=== PATIENT | female | born 1935 | race Caucasian/White ===

== ENCOUNTER 2019-08-24 15:10 | Outpatient (CLI) | payer MEDICARE, OTHER ==
[2019-08-24 16:04] LABS: #Basophils 0.1 thou/uL (0.0-0.2); #Eosinphils 0.1 thou/uL (0.0-0.7); #Lymphocytes 3.2 thou/uL (1.20-3.40); #Monocytes 0.6 thou/uL (0.11-0.59); #Neutrophils 3.8 thou/uL (1.40-6.50); %Basophils 0.9 % (0.0-1.0); %Eosinophils 1.5 % (0.0-10.0); %Monocytes 7.3 % (0.0-10.0); %Neutrophils 49.3 % (42.0-75.0); Hemoglobin 10.8 g/dL (12.0-16.0); Mean Corpuscular HGB CONC 31.7 g/dL (32.0-36.0); Mean Corpuscular Hemoglobin 29.3 pg (27.0-31.0); Mean Corpuscular Volume 92.4 fL (78.0-98.0); Mean Platelet Volume 6.9 fL (7.4-10.4); Platelet Count 235 thou/uL (130-400); RBC Distribution Width 12.6 % (11.5-14.5); Red Blood Cell (RBC) Count 3.68 mill/uL (4.20-5.40); White Blood Cell (WBC) Count 7.7 thou/uL (4.8-10.8)
[2019-08-24 16:07] LABS: ALT (SGPT) 12 U/L (8-55); AST (SGOT) 15 U/L (5-34); Albumin 3.4 g/dL (3.4-4.8); Alkaline Phosphatase 44 U/L (40-110); Anion Gap 15 mmol/L (10-20); BUN (Urea Nitrogen) 8 mg/dL (9.8-20.1); Bilirubin, Total 0.2 mg/dL (0.2-1.2); Calc. Creatinine Clearance 0 mL/min (70-130); Calcium 8.5 mg/dL (7.8-10.44); Carbon Dioxide 30 mmol/L (23-31); Chloride 102 mmol/L (98-107); Estimated GFR-MDRD 89; Globulin 2.7 g/dL (2.4-3.5); Glucose 112 mg/dL (83-110); Potassium 3.8 mmol/L (3.5-5.1); Protein, Total 6.1 g/dL (6.0-8.3); Sodium 143 mmol/L (136-145)
[2019-08-24 16:21] LABS: CRP (Inflammatory) Less than 0.50 mg/dL (= or < 0.5)
== END 2019-08-24 15:11 | disposition home or self-care (01) ==
LOC: MADLAB 15:10
PROVIDERS: ATTEND Internal Medicine Infectious Disease
DX: I10 Essential (primary) hypertension (principal)
CPT/HCPCS: 80053; 85025; 86140

== ENCOUNTER 2019-08-31 14:52 | Outpatient (CLI) | payer MEDICARE, OTHER ==
[2019-08-31 15:22] LABS: #Basophils 0.1 thou/uL (0.0-0.2); #Eosinphils 0.1 thou/uL (0.0-0.7); #Lymphocytes 2.6 thou/uL (1.20-3.40); #Monocytes 0.5 thou/uL (0.11-0.59); #Neutrophils 4.2 thou/uL (1.40-6.50); %Basophils 1.2 % (0.0-1.0); %Eosinophils 1.6 % (0.0-10.0); %Lymphocytes 34.1 % (21.0-51.0); %Monocytes 6.9 % (0.0-10.0); %Neutrophils 56.1 % (42.0-75.0); Hemoglobin 10.4 g/dL (12.0-16.0); Mean Corpuscular HGB CONC 32.1 g/dL (32.0-36.0); Mean Corpuscular Hemoglobin 29.6 pg (27.0-31.0); Mean Corpuscular Volume 92.4 fL (78.0-98.0); Mean Platelet Volume 7.4 fL (7.4-10.4); Platelet Count 286 thou/uL (130-400); Red Blood Cell (RBC) Count 3.51 mill/uL (4.20-5.40); White Blood Cell (WBC) Count 7.5 thou/uL (4.8-10.8)
[2019-08-31 15:37] LABS: ALT (SGPT) 14 U/L (8-55); AST (SGOT) 17 U/L (5-34); Albumin 3.4 g/dL (3.4-4.8); Alkaline Phosphatase 44 U/L (40-110); Anion Gap 16 mmol/L (10-20); BUN (Urea Nitrogen) 11 mg/dL (9.8-20.1); Bilirubin, Total 0.3 mg/dL (0.2-1.2); CRP (Inflammatory) Less than 0.50 mg/dL (= or < 0.5); Calc. Creatinine Clearance 0 mL/min (70-130); Calcium 8.3 mg/dL (7.8-10.44); Carbon Dioxide 27 mmol/L (23-31); Chloride 101 mmol/L (98-107); Globulin 2.5 g/dL (2.4-3.5); Glucose 119 mg/dL (83-110); Potassium 4.3 mmol/L (3.5-5.1); Protein, Total 5.9 g/dL (6.0-8.3); Sodium 140 mmol/L (136-145)
== END 2019-08-31 14:53 | disposition home or self-care (01) ==
LOC: MADLABSP 14:52
PROVIDERS: ATTEND Internal Medicine Infectious Disease
DX: M46.28 Osteomyelitis of vertebra, sacral and sacrococcygeal region (principal)
CPT/HCPCS: 80053; 85025; 86140

== ENCOUNTER 2019-09-14 14:31 | Outpatient (CLI) | payer MEDICARE, OTHER ==
[2019-09-14 14:58] LABS: #Basophils 0.1 thou/uL (0.0-0.2); #Eosinphils 0.1 thou/uL (0.0-0.7); #Lymphocytes 2.9 thou/uL (1.20-3.40); #Monocytes 0.5 thou/uL (0.11-0.59); #Neutrophils 4.7 thou/uL (1.40-6.50); %Basophils 0.9 % (0.0-1.0); %Eosinophils 1.5 % (0.0-10.0); %Lymphocytes 35.3 % (21.0-51.0); %Monocytes 5.5 % (0.0-10.0); %Neutrophils 56.8 % (42.0-75.0); Hemoglobin 11.2 g/dL (12.0-16.0); Mean Corpuscular HGB CONC 31.6 g/dL (32.0-36.0); Mean Corpuscular Hemoglobin 29.6 pg (27.0-31.0); Mean Corpuscular Volume 93.7 fL (78.0-98.0); Mean Platelet Volume 7.3 fL (7.4-10.4); Platelet Count 230 thou/uL (130-400); RBC Distribution Width 13.3 % (11.5-14.5); Red Blood Cell (RBC) Count 3.79 mill/uL (4.20-5.40); White Blood Cell (WBC) Count 8.3 thou/uL (4.8-10.8)
[2019-09-14 15:12] LABS: ALT (SGPT) 13 U/L (8-55); AST (SGOT) 16 U/L (5-34); Albumin 3.6 g/dL (3.4-4.8); Alkaline Phosphatase 53 U/L (40-110); Anion Gap 18 mmol/L (10-20); BUN (Urea Nitrogen) 11 mg/dL (9.8-20.1); Bilirubin, Total 0.3 mg/dL (0.2-1.2); CRP (Inflammatory) Less than 0.50 mg/dL (= or < 0.5); Calc. Creatinine Clearance 0 mL/min (70-130); Calcium 8.9 mg/dL (7.8-10.44); Carbon Dioxide 27 mmol/L (23-31); Chloride 100 mmol/L (98-107); Estimated GFR-MDRD 83; Globulin 2.8 g/dL (2.4-3.5); Glucose 94 mg/dL (83-110); Potassium 4.2 mmol/L (3.5-5.1); Protein, Total 6.4 g/dL (6.0-8.3); Sodium 141 mmol/L (136-145)
== END 2019-09-14 14:32 | disposition home or self-care (01) ==
LOC: MADLABSP 14:31
PROVIDERS: ATTEND Internal Medicine Infectious Disease
DX: M46.28 Osteomyelitis of vertebra, sacral and sacrococcygeal region (principal)
CPT/HCPCS: 80053; 85025; 86140

== ENCOUNTER 2019-09-28 12:03 | Outpatient (CLI) | payer MEDICARE, OTHER ==
[2019-09-28 12:43] LABS: ALT (SGPT) 14 U/L (8-55); AST (SGOT) 16 U/L (5-34); Albumin 3.5 g/dL (3.4-4.8); Alkaline Phosphatase 46 U/L (40-110); Anion Gap 15 mmol/L (10-20); BUN (Urea Nitrogen) 10 mg/dL (9.8-20.1); Bilirubin, Total 0.4 mg/dL (0.2-1.2); CRP (Inflammatory) Less than 0.50 mg/dL (= or < 0.5); Calc. Creatinine Clearance 0 mL/min (70-130); Calcium 8.8 mg/dL (7.8-10.44); Carbon Dioxide 28 mmol/L (23-31); Chloride 101 mmol/L (98-107); Estimated GFR-MDRD Greater than 90; Globulin 2.8 g/dL (2.4-3.5); Glucose 73 mg/dL (83-110); Protein, Total 6.3 g/dL (6.0-8.3); Sodium 140 mmol/L (136-145)
[2019-09-28 12:46] LABS: #Eosinphils 0.1 thou/uL (0.0-0.7); #Lymphocytes 2.9 thou/uL (1.20-3.40); #Monocytes 0.5 thou/uL (0.11-0.59); #Neutrophils 3.9 thou/uL (1.40-6.50); %Basophils 0.6 % (0.0-1.0); %Eosinophils 1.2 % (0.0-10.0); %Lymphocytes 39.5 % (21.0-51.0); %Monocytes 6.9 % (0.0-10.0); %Neutrophils 51.8 % (42.0-75.0); Hemoglobin 11.2 g/dL (12.0-16.0); Mean Corpuscular HGB CONC 31.9 g/dL (32.0-36.0); Mean Corpuscular Hemoglobin 29.3 pg (27.0-31.0); Mean Corpuscular Volume 91.9 fL (78.0-98.0); Mean Platelet Volume 6.8 fL (7.4-10.4); Platelet Count 254 thou/uL (130-400); RBC Distribution Width 12.8 % (11.5-14.5); Red Blood Cell (RBC) Count 3.82 mill/uL (4.20-5.40); White Blood Cell (WBC) Count 7.5 thou/uL (4.8-10.8)
== END 2019-09-28 12:04 | disposition home or self-care (01) ==
LOC: MADLABSP 12:03
PROVIDERS: ATTEND Internal Medicine Infectious Disease
DX: K61.1 Rectal abscess (principal); M46.28 Osteomyelitis of vertebra, sacral and sacrococcygeal region
CPT/HCPCS: 80053; 85025; 86140

== ENCOUNTER 2023-03-16 15:17 | Emergency (ER) | payer MEDICARE, OTHER ==
[~2023-03-16 15:17] MED LIST: Calcium Chloride 1 GM/10 ML Abboject SYRINGE ONE; EPINEPHrine 1 MG/10 ML Abboject SYRINGE ONE; Sodium Bicarb 50 MEQ/50 ML Abboject 8.4% SYRINGE ONE
[2023-03-16] MEDS ORDERED: Ondansetron PF 4 MG/2 ML Vial ONE (15:31)
[2023-03-16] MEDS ORDERED: Sodium Chloride 0.9% 1,000 ML ONE ×2 (15:31→15:58)
[2023-03-16] MEDS ORDERED: methylPREDNISolone Sod Succ/PF 125 MG/2 ML VIAL ONE (15:55)
[2023-03-16] MEDS ORDERED: diphenhydrAMINE 50 MG/ML VIAL ONE (15:55)
[2023-03-16] MEDS ORDERED: Famotidine/PF 20 mg/2ml Vial ONE (15:56)
[2023-03-16] MEDS ORDERED: EPINEPHrine 1 MG/ML VIAL ONE (15:57)
[2023-03-16 16:14] LABS: SARS-CoV-2 NAA Rapid Test Not Detected (NotDetected)
[2023-03-16] MEDS ORDERED: Sodium Chloride 0.9% 500 ML ONE (16:22)
[2023-03-16] MEDS ORDERED: Norepinephrine 4 MG/4 ML VIAL ONE (16:41)
[2023-03-16] MEDS ORDERED: Dextrose 5% in Water 250 ML ONE (16:43)
[2023-03-16 16:50] LABS: ALT (SGPT) 25 U/L (8-55); AST (SGOT) 60 U/L (5-34); Albumin 2.8 g/dL (3.4-4.8); Alkaline Phosphatase 36 U/L (40-110); Anion Gap 20 mmol/L (10-20); BUN (Urea Nitrogen) 14 mg/dL (9.8-20.1); Bilirubin, Total 0.8 mg/dL (0.2-1.2); Calc. Creatinine Clearance 0 mL/min (70-130); Calcium 7.5 mg/dL (7.8-10.44); Carbon Dioxide 14 mmol/L (23-31); Chloride 107 mmol/L (98-107); Estimated GFR 84; Globulin 1.9 g/dL (2.4-3.5); Glucose 226 mg/dL (83-110); Lipase 28 U/L (8-78); Magnesium 1.6 mg/dL (1.6-2.6); Protein, Total 4.7 g/dL (5.8-8.1); Sodium 137 mmol/L (136-145)
[2023-03-16] MEDS ORDERED: Ipratropium/Albuterol 3 ML NEB ONE (16:53)
[2023-03-16] MEDS ORDERED: Etomidate 40 MG (20 mL) VIAL ONE (16:54)
[2023-03-16] MEDS ORDERED: Rocuronium Bromide 10 MG/ML (10ML VIAL) ONE (16:55)
[2023-03-16 17:01] LABS: Troponin I 0.921 ng/mL (< 0.028)
[2023-03-16 17:05] LABS: Band 5 % (5-11); Hematocrit 31.9 % (36.0-47.0); Hemoglobin 10.4 g/dL (12.0-16.0); Hypochromia SLIGHT = 6-15 cells (100X) (0-5/hpf); Lymphocytes 31 % (21-51); MDiff Complete? YES; Mean Corpuscular HGB CONC 32.7 g/dL (32.0-36.0); Mean Corpuscular Hemoglobin 31.3 pg (27.0-31.0); Mean Corpuscular Volume 95.9 fl (78.0-98.0); Mean Platelet Volume 8.1 fL (7.4-10.4); Monocytes 4 % (0-10); Neutrophil 54 % (42-75); Platelet Adequacy Comment Appears Adequate; Platelet Count 192 10x3/uL (130-400); RBC Distribution Width 13.9 % (11.5-14.5); Red Blood Cell (RBC) Count 3.33 mill/uL (4.20-5.40); White Blood Cell (WBC) Count 13.6 10x3/uL (4.8-10.8)
[2023-03-16 17:23] LABS: Base Excess-Venous -15.6 mmol/L (-2.0 to 3.0); Bicarbonate (HCO3v) 13.6 mmol/L (22.0-28.0); CO2 Tension (PvCO2) 45.2 mmHg (42.0-51.0); vO2 Saturation-calc 98.7 % (60.0-85.0)
[2023-03-16 17:24] LABS: Calcium, Ionized 1.04 mmol/L (1.15-1.33); Chloride 108 mmol/L (98-107); Hemoglobin - Calc 10.9 g/dL (12.0-16.0); Potassium 3.9 mmol/L (3.5-5.1); Sodium 137 mmol/L (138-145)
== END 2023-03-16 21:13 | disposition expired ==
LOC: MADERS 15:17
DX: I46.9 Cardiac arrest, cause unspecified (principal); E11.9 Type 2 diabetes mellitus without complications; I10 Essential (primary) hypertension; Z86.73 Personal history of transient ischemic attack (TIA), and cerebral infarction without residual deficits; Z91.89 Other specified personal risk factors, not elsewhere classified
CPT/HCPCS: 71045; 80053; 82330; 82435; 82803; 82962; 83605; 83690; 83735; 83880; 84132; 84295; 84484; 85014; 85025; 87040; 87804 ×2; 93005; J0171; U0002; 36415; 36416; 51702; 96372; 96374; 96375; J1200; J2405; J2930; J7030; J7050; J7070; J7620; S0028